=== PATIENT | female | born 2000 ===

== ENCOUNTER 2024-09-30 15:35 | Inpatient (IN) ==
[2024-09-30] MEDS: Oxytocin in LR 20,000 MILLI.UNIT/1,000 ML BAG IV SCH (16:30)
[2024-09-30] MEDS ORDERED: Glycerin ADULT 2.4 gm SUPP PR PRN (16:38)
[2024-09-30 16:50] LABS: ABS Lymphocytes 1.2 10^3/uL (1.0-4.8); ABS Monocytes 0.4 10^3/uL (0.0-0.9); ABS Neutrophils 7.8 10^3/uL (1.5-7.6); Eosinophil % 0.1 %; Hematocrit 31.6 % (35-45); Hemoglobin 11.2 g/dL (11.5-14.3); Lymphocyte % 12.5 %; Mean Corpuscular Hemoglobin 32.5 pg (27-33); Mean Corpuscular Hgb Conc 35.3 g/dL (31-36); Mean Platelet Volume 9.6 fL (7.5-11.2); Platelet Count 132 10^3/uL (150-450); Red Blood Count 3.44 10^6/uL (3.63-4.92); Red Cell Distribution Width 12.4 % (12-17); White Blood Count 9.3 10^3/uL (3.8-11.8)
[2024-09-30] MEDS: Buffered Lidocaine 1% SYRIN 1 ml INTRADERM ONE (16:55)
[2024-09-30] MEDS: Lactated Ringers 1000 ml BAG 1,000 ML IV ONE (16:56)
[2024-09-30] MEDS: Lactated Ringers 1000 ml BAG 1,000 ML IV SCH (16:58)
[2024-09-30] MEDS ORDERED: Lactated Ringers 1000 ml BAG 1,000 ML IV SCH (17:00)
[2024-09-30 17:01] LABS: Urine Appearance Extra Turbid; Urine Bacteria Absent /HPF (Absent); Urine Bilirubin Negative (Negative); Urine Blood 3+ (Negative); Urine Glucose Negative (Negative); Urine Ketones Trace (Negative); Urine Nitrite Negative (Negative); Urine Protein 2+ (>=100 mg/dL) (Negative); Urine Red Blood Cell 3+(>10/hpf) /HPF (0-Trace); Urine Specific Gravity 1.027 (1.002-1.030); Urine Squamous Epithelial Cell Present /HPF (Absent); Urine Urobilinogen Negative (Negative); Urine White Blood Cell 3+(>20/hpf) /HPF (0-Trace); Urine pH 5.5 (5.0-8.0)
[2024-09-30 17:02] LABS: Urine Color Light-Red
[2024-09-30 17:11] LABS: Albumin 3.3 g/dL (3.5-5.7); Albumin/Globulin Ratio 1.3 (1-3); Calcium 8.7 mg/dL (8.6-10.3); Creatinine, Serum 0.66 mg/dL (0.51-0.95); Globulin 2.6 g/dL (2-4); Potassium 4.2 mmol/L (3.5-5.0); Total Bilirubin 0.8 mg/dL (0.2-1.0); Total Protein 5.9 g/dL (6.4-8.9); eGFR CKD-EPI 126.3 (>60)
[2024-09-30 17:12] LABS: Urine Benzodiazepine Screen None Detected (None Detect); Urine Cannabinoids Screen None Detected (None Detect); Urine Opiates Screen None Detected (None Detect)
[2024-09-30 17:51] LABS: HIV 4th Generation Nonreactive (Nonreactive)
[2024-09-30 18:41] LABS: Hepatitis B Surface Antigen Nonreactive (Nonreactive)
[2024-09-30 18:58] LABS: Hepatitis C Antibody Negative (Negative)
[2024-09-30] MEDS ORDERED: Measles, Mumps,Rubella VACC 0.5 ML/VIAL SUBCUT ONE (19:20)
[2024-10-01] MEDS: Witch Hazel PAD JAR TOPICAL PRN (10:14)
[2024-10-01] MEDS: Dibucaine 1% OINT 28.35 GM TUBE PR PRN (10:14)
[2024-10-01] MEDS ORDERED: Influenza Vaccine *TRI* 2024-25* 0.5 ML SYRINGE IM ONE (11:00)
[2024-10-02 20:04] VITALS: BP 107/64
[2024-10-02] MEDS: Varicella Virus Vaccine Live 0.5 ML VIAL SUBCUT ONE (22:26)
[2024-10-02] MEDS: Measles, Mumps,Rubella VACC 0.5 ML/VIAL SUBCUT ONE (22:33)
[2024-10-02] MEDS: Tetan/Diph/Pertus SYR(Tdap) 0.5 ML SYR(BOOSTRIX) use SYR contains LATEX IM ONE (22:35)
== END 2024-10-02 22:51 | disposition home or self-care (01) | DRG 776 ==
LOC: MCHOB 15:51 → UNDODISIN 22:50
PROVIDERS: ADMIT Obstetrics & Gynecology